=== PATIENT | female | born 1975 | race Caucasian/White ===

== ENCOUNTER 2016-10-16 07:09 | Day surgery (SDC) | payer OTHER ==
[2016-10-12 11:19] LABS: BUN (BLOOD UREA NITROGEN) 12 MG/DL (6-23); CHLORIDE, SERUM 107 MMOL/L (96-112); CO2 (CARBON DIOXIDE) 27 MMOL/L (24-34); CREATININE 0.93 MG/DL (0.55-1.02); GFR AFRICAN AMERICAN 90 ML/MIN (>=60); GFR NON AFRICAN AMERICAN 77 ML/MIN (>=60); GLUCOSE, SERUM 144 MG/DL (60-99); POTASSIUM, SERUM 3.8 MMOL/L (3.5-5.3); SODIUM, SERUM 141 MMOL/L (135-148)
--- NOTE | ~2016-10-16 | OP ---
Record Of Operation [facility] [address] [place]. [address] NAME: SHARONA JIMENEZ : 79 STATUS : REG [facility] PAT#: [id number] AGE: 41 ADM/REG DATE : 10/16/16 MR#: [id number] REPORT SERV DATE: 10/16/16 DICTATED BY: WAQAS THORNE DATE: 10/16/16 REPORT STATUS : Draft TRANSCRIBED BY: MODBenny DATE: 10/16/16 DATE OF PROCEDURE: 10/16/2016 SURGERY PERFORMED: [facility]. SURGEON: Waqas Thorne D.P.M. PREOPERATIVE DIAGNOSES: 1. Right retrocalcaneal exostosis. 2. Right Achilles tendinosis. POSTOPERATIVE DIAGNOSES: 1. Right retrocalcaneal exostosis. 2. Right Achilles tendinosis. PROCEDURES: 1. Right retrocalcaneal exostectomy. 2. Right Achilles tendon repair. ANESTHESIA: General. HEMOSTASIS: 250 mmHg thigh tourniquet. ESTIMATED BLOOD LOSS: Less than 5 mL. MATERIALS: 3-0 Vicryl, 4-0 Monocryl, Arthrex SpeedBridge with #2 FiberWire and four SwiveLock anchors. INJECTABLES: 31 mL of 1:1 mixture of 1% Xylocaine plain and 0.5% Marcaine plain. COMPLICATIONS: None. INDICATIONS: This is a 41-year-old, white female with a longstanding history of pain in the posterior aspect of her right heel. Clinical examination in the office was consistent with a right retrocalcaneal exostosis. There is tenderness to palpation and prominence at the insertion of the right Achilles tendon and calcaneus. Conservative care including stretching exercises, shoe modifications, mobilization was utilized with minimal improvement. X-ray examination was consistent with a large step defect in the posterior calcaneus as well as a large prominence at the insertion of the Achilles tendon into the posterior heel where the step defect was noted. There was also noted to be a prominent posterior superior calcaneal surface, which was also likely causing irritation. Based upon the patient's clinical and radiographic findings, it was recommended that she undergo right retrocalcaneal exostectomy with Achilles tendon repair. We discussed with the patient the intended alternatives and benefits and possible complications of surgical procedure. The procedure and recovery period were discussed with the patient in great detail. No problems or guarantees were given. The patient is scheduled for surgery. Record Of Operation [facility] [address] [place]. [address] NAME: SHARONA JIMENEZ : 79 STATUS : REG [facility] PAT#: [id number] AGE: 41 ADM/REG DATE : 10/16/16 MR#: [id number] REPORT SERV DATE: 10/16/16 DICTATED BY: WAQAS THORNE DATE: 10/16/16 REPORT STATUS : Draft TRANSCRIBED BY: FRANCINE DATE: 10/16/16 DESCRIPTION OF PROCEDURE: The patient was brought to the operating room. Appropriate monitoring equipment including EKG, blood pressure, pulse oximeter were attached to the patient and found to be in good working order. IV access was established by Anesthesia. The patient received preoperative antibiotics. After the patient was identified by the surgeon, general anesthesia was induced. The patient was then transferred to the operating table in the prone position. The patient's right foot and leg were prepped and draped in usual sterile manner. The right foot and leg were elevated and exsanguinated. Pneumatic thigh tourniquet was raised to 350 mmHg. Attention was directed to posterior aspect of the right heel where a modified hockey-stick incision was made starting lateral to the Achilles tendon. Coursing inferior to the area of the insertion of the Achilles tendon and the posterior calcaneus. Incision was deepened with sharp and blunt dissection. Superficial veins were identified and ligated via electrocautery. Neurovascular structures were identified and retracted from the operative site. Dissection was carried out through the level of the deep fascia and paratenon, and the Achilles tendon was identified at the posterior aspect of the right heel. The resulting fasciocutaneous flap was retracted medially. Lateral capsulotomy was performed lateral to the insertion of the Achilles tendon. The Achilles tendon was then reflected off the area of the retrocalcaneal spur and step defect. It was noted at this time that a large portion of the spur was detached from the posterior aspect of the calcaneus. Based on these findings, it was likely this was causing a large portion of the patient's discomfort. The Achilles was further reflected exposing the entire step defect and retrocalcaneal exostosis. The loose fragment was removed with a rongeur. The remainder of the exostosis was removed with a sagittal saw. Resulting residual osseous margins of bone were further smoothed with a sagittal saw. The large posterior superior portion of the calcaneus was reduced with an osteotome and mallet. The operative site was copiously irrigated with normal saline. At this time, a tenodesis of the Achilles tendon was performed to the anatomical position of the posterior aspect of the right heel with the use of an Arthrex SpeedBridge that included four SwiveLocks and #2 FiberWire. Once the tenodesis was completed, it was noted that the Achilles was intact in good anatomical position. Residual prior areas of the Achilles were trimmed with a tenotomy scissors. Operative site was copiously irrigated with normal saline. The paratenon and deep fascia and subcutaneous tissue was reapproximated with 3-0 Vicryl suture. Skin was reapproximated with 4-0 Monocryl suture in a running subcuticular fashion. Operative site was infiltrated with 31 mL of 1:1 mixture of 1% Xylocaine plain and 0.5% Marcaine plain. Standard postop dressing including Steri-Strips, Xeroform, and dry sterile gauze was applied to the right foot and ankle. Tourniquet was let down and cap refill was noted to return to the toes immediately and be well within normal limits and under 3 seconds. The patient was then placed in a modified Jeffers compression dressing with AO splint with the ankle joint slight equinus. Good capillary refill to the distal toes on the right foot was noted after application of postoperative dressings and splint. The patient tolerated the procedure and anesthesia well. The patient left the operating room and returned to recovery room with vital signs stable and vital signs intact. Neurovascular status of the upper extremity was confirmed to be within normal limits in the recovery room and postoperative instructions were reiterated to the person driving the patient home. The patient was dispensed postop instructions and prescriptions. The patient Record Of [address] [place]. [address] NAME: SHARONA JIMENEZ : 79 STATUS : REG [facility]#: [id number] AGE: 41 ADM/REG DATE : 10/16/16 MR#: [id number] REPORT SERV DATE: 10/16/16 DICTATED BY: WAQAS THORNE DATE: 10/16/16 REPORT STATUS : Draft TRANSCRIBED BY: FRANCINE DATE: 10/16/16 was instructed on proper ice and elevation to the right foot and leg to reduce postop pain and swelling. The patient was instructed to keep her dressings and splint dry, covered, and clean. The patient instructed to contact the office with any questions or concerns. Reiterated to the patient and the patient's family the importance of strict nonweightbearing off the right foot with use of crutches. The patient is scheduled to follow up in the office in approximately one week's time. MICKI/FRANCINE Waqas Thorne D.P.M. / [id number] CC: Waqas Thorne D.P.M.
[~2016-10-16 07:09] MED LIST: AT25 PO; DOX10 PO; PROZAC40 MG PO
[2016-10-16 07:30] LABS: BASOPHILS 0.4 %; BASOPHILS ABSOLUTE 0.02 10/3/uL (0.0-0.16); EOSINOPHILS 4.5 %; EOSINOPHILS ABSOLUTE 0.22 10/3/uL (0.0-0.53); HEMATOCRIT 40.1 % (36.0-48.0); HEMOGLOBIN 13.3 g/dL (12.0-16.0); IMMATURE GRANULOCYTES 0.2 %; IMMATURE GRANULOCYTES ABSOLUTE 0.01 10/3/uL (0.0-0.11); LYMPHOCYTES 30.3 %; LYMPHOCYTES ABSOLUTE 1.49 10/3/uL (0.67-4.30); MEAN CORPUS HGB CONC 33.2 g/dL (32.0-36.0); MEAN CORPUSCULAR HEMOGLOB 30.9 pg (26.0-34.0); MEAN CORPUSCULAR VOLUME 93.3 fL (80-100); MEAN PLATELET VOLUME 9.1 fL (9.2-13.0); MONOCYTES 8.4 %; MONOCYTES ABSOLUTE 0.41 10/3/uL (0.21-1.20); NEUTROPHILS 56.2 %; NEUTROPHILS ABSOLUTE 2.76 10/3/uL (2.02-8.40); PLATELET COUNT 307 10/3/uL (150-400); RBC DISTRIBUTION WIDTH 12.5 % (12.0-16.0); WHITE BLOOD CELLS 4.9 10/3/uL (4.5-10.5)
[2016-10-16 07:31] LABS: MANUAL DIFF NO %
== END 2016-10-16 14:21 | disposition home or self-care (01) ==
LOC: SDC 07:09
PROVIDERS: Podiatrist
PROC: 0QBL0ZZ Excision of Right Tarsal, Open Approach (ICD-10-PCS; principal; 2016-10-16 08:45)
PROC: 0LQN0ZZ Repair Right Lower Leg Tendon, Open Approach (ICD-10-PCS; 2016-10-16 08:45)
DX: M77.31 Calcaneal spur, right foot (principal); M76.61 Achilles tendinitis, right leg; G43.909 Migraine, unspecified, not intractable, without status migrainosus; F31.9 Bipolar disorder, unspecified; F41.9 Anxiety disorder, unspecified; F43.10 Post-traumatic stress disorder, unspecified; E66.01 Morbid (severe) obesity due to excess calories; Z68.43 Body mass index [BMI] 50.0-59.9, adult; Z86.73 Personal history of transient ischemic attack (TIA), and cerebral infarction without residual deficits; Z85.42 Personal history of malignant neoplasm of other parts of uterus; Z88.5 Allergy status to narcotic agent; Z79.899 Other long term (current) drug therapy; Z90.49 Acquired absence of other specified parts of digestive tract; Z90.710 Acquired absence of both cervix and uterus
CPT/HCPCS: 73630-RT; 80048; 85025; 93005; C1762; J0690; J1170; J2250; J2405; J2710; J3010